=== PATIENT | female | born 2000 | race Two or more races ===

== ENCOUNTER 2021-10-29 01:03 | Inpatient (IN) | payer BC, SELFPAY ==
[2021-10-29 02:21] VITALS: BMI 32.5
[2021-10-29] MEDS ORDERED: Acetaminophen 325 MG TAB PO PRN (03:15)
[2021-10-29] MEDS: HYDROcodone/Acetaminophen 7.5/325 mg Tablet PO PRN ×3 (03:57→21:40)
[2021-10-29 05:35] LABS: #Eosinphils 0.1 thou/uL (0.0-0.7); #Lymphocytes 1.2 thou/uL (1.20-3.40); #Monocytes 0.5 thou/uL (0.11-0.59); #Neutrophils 5.3 thou/uL (1.40-6.50); %Basophils 0.4 % (0.0-1.0); %Eosinophils 0.9 % (0.0-10.0); %Lymphocytes 17.1 % (28.0-48.0); %Monocytes 7.2 % (0.0-4.0); %Neutrophils 74.4 % (31.0-61.0); Mean Corpuscular HGB CONC 33.5 g/dL (32.0-36.0); Mean Corpuscular Hemoglobin 28.4 pg (25.0-35.0); Mean Corpuscular Volume 84.9 fL (78.0-98.0); Mean Platelet Volume 7.2 fL (7.4-10.4); Platelet Count 219 thou/uL (130-400); RBC Distribution Width 12.6 % (11.5-14.5); Red Blood Cell (RBC) Count 4.23 mill/uL (4.00-5.20); White Blood Cell (WBC) Count 7.1 thou/uL (4.8-10.8)
[2021-10-29 06:03] LABS: Anion Gap 11 mmol/L (10-20); BUN (Urea Nitrogen) 12 mg/dL (7.0-18.7); Calc. Creatinine Clearance 149 mL/min (70-130); Calcium 8.9 mg/dL (7.8-10.44); Carbon Dioxide 23 mmol/L (22-29); Chloride 109 mmol/L (98-107); Glucose 102 mg/dL (70-105); Potassium 3.9 mmol/L (3.5-5.1); Sodium 139 mmol/L (136-145)
[2021-10-29 07:14] LABS: Bacteria/HPF 1+ HPF (None Seen); Bilirubin Negative (Negative); Blood, Urine 2+ (Negative); Clarity Clear (Clear); Glucose, Urine (Dipstick) Normal (Negative); Ketone, Urine Negative (Negative); Leukocyte 250 Leu/uL (Negative); Nitrite Negative (Negative); Protein, Urine (Dipstick) 20 mg/dL (Neg-Trace); RBC/HPF 21-50 HPF (0-3); Urobilinogen Normal mg/dL (Less than 2); WBC/HPF Greater than 50 HPF (0-3); pH, Urine 5.5 (5.0-9.0)
[2021-10-29 07:16] LABS: Urine Culture Reflex No No
[2021-10-29] MEDS ORDERED: FLU VACC QS2021-22(6MOS UP)/PF 60 MCG/0.5 ML SYRINGE IM ONE (09:00)
[2021-10-29] MEDS: Ondansetron PF 4 MG/2 ML Vial IVP PRN (09:39)
[2021-10-29] MEDS ORDERED: Midazolam HCl 2 mg/2 ml Vial ONE (11:49)
[2021-10-29] MEDS ORDERED: PROPOFOL 200 MG/20 ML VIAL ONE (12:03)
[2021-10-29] MEDS ORDERED: Dexamethasone 20 MG/5 ML VIAL ONE (12:03)
[2021-10-29] MEDS ORDERED: Lidocaine 1% PF 5 ML VIAL ONE (12:03)
[2021-10-29] MEDS ORDERED: Ondansetron PF 4 MG/2 ML Vial ONE (12:03)
[2021-10-29] MEDS ORDERED: Iothalamate Meglumine 60% 50 ML VIAL FS ONE (12:08)
[2021-10-29] MEDS ORDERED: Promethazine HCl 25 MG/ML VIAL IVPB PRN (12:46)
[2021-10-29] MEDS ORDERED: Ondansetron HCl/PF 4 MG/2 ML Vial IVP PRN (12:46)
[2021-10-29] MEDS ORDERED: Promethazine HCl 25 MG/ML VIAL IM PRN (12:46)
[2021-10-29] MEDS ORDERED: Acetaminophen 500 MG TAB PO PRN (12:50)
[2021-10-29] MEDS ORDERED: Phenazopyridine HCl 97.5 MG TABLET PO PRN (12:50)
[2021-10-29] MEDS ORDERED: diphenhydrAMINE 50 MG/ML VIAL IVP PRN (12:50)
[2021-10-29] MEDS ORDERED: Oxybutynin 5 MG TAB ONE (13:17)
[2021-10-29] MEDS: Ketorolac Tromethamine 30 MG/ML VIAL IVP PRN ×2 (14:56→21:40)
[2021-10-29] MEDS: Famotidine/PF 20 mg/2ml Vial SLOW IVP SCH (20:12)
[2021-10-29] MEDS: Docusate 100 MG CAP PO SCH (20:12)
[2021-10-29] MEDS: Sodium Chloride 0.9% 1,000 ML IV SCH (20:12)
[2021-10-29] MEDS: Oxybutynin 5 MG TAB PO PRN (21:41)
[2021-10-30] MEDS: Sodium Chloride 0.9% 1,000 ML IV SCH ×3 (05:57→21:11)
[2021-10-30 06:31] LABS: #Lymphocytes 1.1 thou/uL (1.20-3.40); #Monocytes 0.6 thou/uL (0.11-0.59); #Neutrophils 6.9 thou/uL (1.40-6.50); %Basophils 0.4 % (0.0-1.0); %Eosinophils 0.2 % (0.0-10.0); %Lymphocytes 12.8 % (28.0-48.0); %Monocytes 6.7 % (0.0-4.0); Hemoglobin 11.8 g/dL (12.0-16.0); Mean Corpuscular HGB CONC 32.7 g/dL (32.0-36.0); Mean Corpuscular Hemoglobin 27.8 pg (25.0-35.0); Mean Platelet Volume 7.5 fL (7.4-10.4); Platelet Count 245 thou/uL (130-400); RBC Distribution Width 12.7 % (11.5-14.5); Red Blood Cell (RBC) Count 4.24 mill/uL (4.00-5.20); White Blood Cell (WBC) Count 8.6 thou/uL (4.8-10.8)
[2021-10-30 06:43] LABS: Anion Gap 11 mmol/L (10-20); BUN (Urea Nitrogen) 9 mg/dL (7.0-18.7); Calc. Creatinine Clearance 175 mL/min (70-130); Calcium 8.7 mg/dL (7.8-10.44); Carbon Dioxide 20 mmol/L (22-29); Chloride 110 mmol/L (98-107); Glucose 110 mg/dL (70-105); Potassium 4.3 mmol/L (3.5-5.1); Sodium 137 mmol/L (136-145)
[2021-10-30] MEDS: Famotidine/PF 20 mg/2ml Vial SLOW IVP SCH ×2 (09:09→21:06)
[2021-10-30] MEDS: Docusate 100 MG CAP PO SCH ×2 (09:09→21:06)
[2021-10-30] MEDS: Oxybutynin 5 MG TAB PO PRN ×2 (09:13→15:44)
[2021-10-31] MEDS: Ketorolac Tromethamine 30 MG/ML VIAL IVP PRN (01:29)
[2021-10-31] MEDS: Ondansetron PF 4 MG/2 ML Vial IVP PRN (03:57)
[2021-10-31 04:54] LABS: #Basophils 0.1 thou/uL (0.0-0.2); #Eosinphils 0.1 thou/uL (0.0-0.7); #Lymphocytes 2.4 thou/uL (1.20-3.40); #Monocytes 0.6 thou/uL (0.11-0.59); #Neutrophils 4.9 thou/uL (1.40-6.50); %Basophils 0.7 % (0.0-1.0); %Eosinophils 1.6 % (0.0-10.0); %Lymphocytes 29.4 % (28.0-48.0); %Monocytes 7.4 % (0.0-4.0); %Neutrophils 60.9 % (31.0-61.0); Hemoglobin 11.2 g/dL (12.0-16.0); Mean Corpuscular HGB CONC 32.2 g/dL (32.0-36.0); Mean Corpuscular Hemoglobin 27.6 pg (25.0-35.0); Mean Corpuscular Volume 85.6 fL (78.0-98.0); Mean Platelet Volume 7.4 fL (7.4-10.4); Platelet Count 220 thou/uL (130-400); RBC Distribution Width 12.7 % (11.5-14.5); Red Blood Cell (RBC) Count 4.06 mill/uL (4.00-5.20)
[2021-10-31 05:12] LABS: Anion Gap 10 mmol/L (10-20); BUN (Urea Nitrogen) 12 mg/dL (7.0-18.7); Calc. Creatinine Clearance 164 mL/min (70-130); Calcium 8.1 mg/dL (7.8-10.44); Carbon Dioxide 22 mmol/L (22-29); Chloride 108 mmol/L (98-107); Glucose 89 mg/dL (70-105); Potassium 3.8 mmol/L (3.5-5.1); Sodium 136 mmol/L (136-145)
[2021-10-31] MEDS: Famotidine/PF 20 mg/2ml Vial SLOW IVP SCH (08:59)
[2021-10-31] MEDS: Docusate 100 MG CAP PO SCH (08:59)
[2021-10-31] MEDS: Sodium Chloride 0.9% 1,000 ML IV SCH (09:06)
[2021-10-31] MEDS: Oxybutynin 5 MG TAB PO PRN (10:36)
[2021-10-31 12:13] VITALS: BP 110/73; TEMP 98.1
== END 2021-10-31 11:55 | disposition home or self-care (01) | DRG 661 ==
LOC: INTOOBSV 01:49 → SURG B 01:49 → OBSVTOIN 10-30 11:19
PROVIDERS: ADMIT Internal Medicine; ATTEND Internal Medicine
PROC: 0T778DZ Dilation of Left Ureter with Intraluminal Device, Via Natural or Artificial Opening Endoscopic (ICD-10-PCS; principal; 2021-10-29)
PROC: 0TC78ZZ Extirpation of Matter from Left Ureter, Via Natural or Artificial Opening Endoscopic (ICD-10-PCS; 2021-10-29)
PROC: BT1F1ZZ Fluoroscopy of Left Kidney, Ureter and Bladder using Low Osmolar Contrast (ICD-10-PCS; 2021-10-29)
DX: N13.6 Pyonephrosis (principal); Z88.1 Allergy status to other antibiotic agents; Z84.1 Family history of disorders of kidney and ureter
CPT/HCPCS: 36415; 74420; 80048; 81001; 82365; 85025; 87086; 88300; 96374; 96375; 96376; C2617; G0378; J1100; J1885; J1956; J2250; J2405; J2704; J7050; Q9961-U8; S0028